=== PATIENT | female | born 2000 | race Caucasian/White ===

== ENCOUNTER 2020-03-06 19:20 | Emergency (ER) | payer BC, SELFPAY ==
[2020-03-06 19:30] VITALS: BP 133/94; PULSE 105; RESP 16; TEMP 37.1; O2SAT 97; BMI 35.2; BMI 35.3
--- NOTE | 2020-03-06 19:48 | HMH.EDUTC ---
[facility] [place] Disposition Clinical Impression: Low back pain with radiation Sciatica Qualifiers: Laterality: right Qualified Code(s): M54.31 - Sciatica, right side Disposition: Home, Self-Care Condition on Discharge: Good Instructions: Sciatica, DI for Sciatica, DI for Back Pain With Sciatica Additional Instructions: Go home and rest. It would be best if you rested tomorrow too. No heavy lifting. No twisting. Take the oral medications as directed. The muscle relaxer (robaxin) will make you drowsy, so don't drive or operate heavy machinery after taking it. Don't start the oral steroids (medrol dose pack) until tomorrow, since you had the shots in here today. Follow up with your regular doctor. GO TO THE ER FOR ANY WORSENING SYMPTOMS OR CONCERN, ESPECIALLY BOWEL OR BLADDER ISSUES, SADDLE AREA NUMBNESS, FEVER, ETC Prescriptions: Ibuprofen [Ibuprofen 600mg Tablet] 600 mg PO Q6HP PRN #30 tab PRN Reason: Mild Pain Transmission Status: Received by [facility] #[id number] methylPREDNISolone [Medrol] 4 mg PO DIRECTED 6 Days #21 tab.ds.pk Transmission Status: Received by [facility] #[id number] Referrals: PCP,No [Primary Care Provider] - Time of Disposition: 20:11 Medical Decision Making - Medical Records Medical records reviewed: No: I reviewed the patient's medical records. - Duane Inquiry Pt receiving controlled substance: No Vital Signs: 03/06/20 19:30 03/06/20 20:18 Temperature 98.7 F 98.7 F Temperature Source Oral Pulse Rate 105 H Pulse Rate [Right] 105 H Respiratory Rate 16 16 Blood Pressure 133/94 H Blood Pressure [Right Arm] 133/94 H Blood Pressure Mean [Right Arm] 107 Blood Pressure Source [Right Arm] Automatic Cuff Blood Pressure Position [Right Arm] Sitting 02 Sat by Pulse Oximetry 97 Oxygen Delivery Method Room Air Orders (Tests/Meds): ED MEDICATIONS Discontinued Medications Generic Name Dose Route Start Last Admin Trade Name Freq PRN Reason Stop Dose Admin Ketorolac Tromethamine 60 mg 03/06/20 19:58 03/06/20 20:15 Ketorolac 60mg/2ml Vial IM 03/06/20 19:59 60 mg ONCE ONE Administration Methylprednisolone Sodium Succinate 125 mg 03/06/20 19:58 03/06/20 20:15 Methylprednisolone Sod Succ 125mg Vial IM 03/06/20 19:59 125 mg ONCE ONE Administration [facility] [place] HPI - General Stated complaint: back pain radiating to leg Time Seen by Provider: 03/06/20 19:48 Mode of Arrival: Ambulatory Source of Information: Patient Limitations: No Limitations Description of Symptoms (Recalled from Triage Doc. by RN): PATIENT C/O PAIN IN LEFT LOWER BACK THAT RADIATES DOWN LEFT LEG. STATES PAIN BEGAN YESTERDAY AND WAS WORSE THIS MORNING. DENIES INJURY HEENT Symptoms (Recalled from RN notes): No Resp Symptoms (Recalled from RN notes): No Skin Symptoms (Recalled from RN notes): No MS Symptoms (Recalled from RN notes): Yes Functional Status (Recalled from RN notes): WNL - History of Present Illness Provider Complaint: She c/o low back pain that radiates down her right leg. She states that this pain began a couple days ago. She denies any recent injury, recent falls or mva. She denies any saddle area numbness or urinary or bowel complaints. - Related Data Previous Rx's Medication Instructions Recorded Ibuprofen [Ibuprofen 600mg 600 mg PO Q6HP PRN #30 tab 03/06/20 Tablet] methylPREDNISolone [Medrol] 4 mg PO DIRECTED 6 Days #21 03/06/20 tab.ds.pk Allergies Allergy/AdvReac Type Severity Reaction Status Date / Time No Known Allergies Allergy Unverified 02/11/17 15:33 - Worker's Comp Is this a Worker's Comp case?: No [facility] History - Hepatitis A Screen Drug use history?: No High risk sexual behaviors?: No History of sexually transmitted infection?: No Currently employed?: No Childcare worker?: No Do you have indoor plumbing?: Yes Do you have electricity?: Yes Attestation statement:: This patient has been screene
[2020-03-06 20:18] VITALS: BP 133/94; PULSE 105; RESP 16; TEMP 37.1; O2SAT 97
== END 2020-03-06 20:30 | disposition home or self-care (01) ==
PROVIDERS: Emergency Provider Nurse Practitioner Family
DX: M54.31 Sciatica, right side (principal)
CPT/HCPCS: 96372; 99202; G0463

== ENCOUNTER → 2020-11-30 19:40 | Outpatient (CLI) | payer BC, SELFPAY | PROVIDERS: Visit Provider Nurse Practitioner Family | DX: Z20.822 Contact with and (suspected) exposure to COVID-19 (principal) | CPT/HCPCS: C9803; U0003; U0005 ==

== ENCOUNTER 2021-02-25 17:07 | Emergency (ER) | payer BC, SELFPAY ==
[2021-02-25 19:20] VITALS: BP 145/95; PULSE 102; RESP 18; TEMP 37.3; O2SAT 97; BMI 36.1
[2021-02-25 19:38] LABS: UTC Influenza A Antigen Negative (Negative); UTC Influenza B Antigen Negative (Negative)
[2021-02-25 19:39] LABS: UTC Strep Screen (Rapid) Negative (Negative)
--- NOTE | 2021-02-25 19:46 | HMH.EDUTC ---
[facility] [place] Impression: Viral syndrome, Vertigo Disposition: Home, Self-Care Condition on Discharge: Good Instructions: DI for COVID-19 (Suspected or Confirmed ), Preventing the Spread of Coronavirus Discharge Instructions Additional Instructions: Drink plenty of fluids. Take tylenol or ibuprofen for pain or fever. Take the medications as directed. Follow up with your regular doctor. GO TO THE ER FOR ANY WORSENING SYMPTOMS Quarantine until you know the results of your covid-19 test. If it is positive, the health department should call you and give you further instructions about your length of Quarantine and other things. Notify your school or workplace of your results and follow their instructions regarding return to work/school. Prescriptions: Meclizine HCl [Antivert 25mg tablet] 25 mg PO Q6HP PRN #20 tab PRN Reason: Dizziness [id number] methylPREDNISolone [Medrol] 4 mg PO DIRECTED 6 Days #21 packet Transmission Status: [id number] Azithromycin [Z-Néstor 250mg Tab*] 250 mg PO UD DOSE PK #6 tab Transmission Status: [facility] Referrals: Provider,Referral, [Primary Care Provider] - Forms: Work/School Release Time of Disposition: 20:18 Medical Decision Making - Medical Records Medical records reviewed: No: I reviewed the patient's medical records. - Duane Inquiry Pt receiving controlled substance: No Vital Signs: 02/25/21 19:20 Temperature 99.1 F Temperature Source Oral Pulse Rate [Left] 102 H Respiratory Rate 18 Blood Pressure [Right Arm] 145/95 H Blood Pressure Mean [Right Arm] 111 02 Sat by Pulse Oximetry 97 - Lab Data Lab results reviewed: Yes: I reviewed the patient's lab results. Lab Results 02/25/21 19:37: Strep Scn [facility] Negative 02/25/21 19:37: Influenza Type A Ag Negative, Influenza Type B Ag Negative Orders (Tests/Meds): ORDERS Category Date Time Status Covid-19 Nasal PCR ([facility]) Routine Lab 02/25/21 19:17 Received Strep Screen Confirmation Routine Micro 02/25/21 19:37 [facility] - General Stated complaint: headache, nausea, soa, diarrhea Time Seen by Provider: 02/25/21 19:46 Mode of Arrival: Ambulatory Source of Information: Patient Limitations: No Limitations Description of Symptoms (Recalled from Triage Doc. by RN): pt c/o a GOMEZ, dizziness, nausea, diarrhea, stomach ache and soa. x3 days HEENT Symptoms (Recalled from RN notes): Yes Resp Symptoms (Recalled from RN notes): Yes Skin Symptoms (Recalled from RN notes): No MS Symptoms (Recalled from RN notes): No Functional Status (Recalled from RN notes): wnl - History of Present Illness Provider Complaint: She c/o bilateral ear pain, sore throat, intermitent dizziness, and a nonproductive cough for the past 2 days. She denies fever but she has been having chills at times. - Related Data Previous Rx's Medication Instructions Recorded azithromycin 250 mg tablet 250 mg PO QDAY 5 Days #6 tab 11/30/20 Azithromycin [Z-Néstor 250mg Tab*] 250 mg PO UD DOSE PK #6 tab 02/25/21 Meclizine HCl [Antivert 25mg 25 mg PO Q6HP PRN #20 tab 02/25/21 tablet] methylPREDNISolone [Medrol] 4 mg PO DIRECTED 6 Days #21 02/25/21 packet Allergies Allergy/AdvReac Type Severity Reaction Status Date / Time No Known Allergies Allergy Unverified 11/30/20 15:23 - Worker's Comp Is this a Worker's Comp case?: No [facility] History - Hepatitis A Screen Drug use history?: No High risk sexual behaviors?: No History of sexually transmitted infection?: No Currently employed?: No Childcare worker?: No Do you have indoor plumbing?: Yes Do you have electricity?: Yes Attestation statement:: This patient has been screened for Hepatitis A risk factors. I have reviewed the patient's past medical history: Yes Other Surgeries: Yes: No Previous Surgery - Social History Smoking Status: Never sm
[2021-02-25 20:27] VITALS: BP 145/95; PULSE 102; RESP 18; TEMP 37.3
== END 2021-02-25 20:29 | disposition home or self-care (01) ==
PROVIDERS: Emergency Provider Nurse Practitioner Family
DX: B34.9 Viral infection, unspecified (principal); R42 Dizziness and giddiness; Z20.822 Contact with and (suspected) exposure to COVID-19
CPT/HCPCS: 87804; 87880; 99203; C9803; G0463; U0003; U0005

== ENCOUNTER 2021-03-11 13:26 | Emergency (ER) | payer BC, SELFPAY ==
[2021-03-11 15:22] VITALS: BP 119/84; PULSE 91; RESP 20; TEMP 36.9; O2SAT 97; BMI 35.9
--- NOTE | 2021-03-11 15:26 | HMH.EDUTC ---
[facility] [place] Disposition Clinical Impression: Viral syndrome, Exposure to COVID-19 virus Disposition: Home, Self-Care Condition on Discharge: Good Instructions: DI for Viral Syndrome, DI for COVID-19 (Suspected or Confirmed ), Preventing the Spread of Coronavirus Discharge Instructions Additional Instructions: Drink plenty of fluids. Take tylenol or ibuprofen for pain or fever. Take the medications as directed. The zofran if for the nausea you are having. Follow up with your regular doctor. GO TO THE ER FOR ANY WORSENING SYMPTOMS Quarantine until you know the results of your covid-19 test. Notify your school or workplace of your results and follow their instructions regarding return to work/school. Prescriptions: Ondansetron [Zofran 4mg ODT] 4 mg PO Q8HP PRN #20 tab PRN Reason: Nausea Transmission Status: Received by [id number] Referrals: Provider,Referral, [Primary Care Provider] - Forms: Work/School Release Time of Disposition: 15:39 Medical Decision Making - Medical Records Medical records reviewed: No: I reviewed the patient's medical records. - Duane Inquiry Pt receiving controlled substance: No Vital Signs: 03/11/21 15:22 03/11/21 16:05 Temperature 98.4 F 98.4 F Temperature Source Oral Pulse Rate 91 H Pulse Rate [Left] 91 H Respiratory Rate 20 20 Blood Pressure 119/84 Blood Pressure [Right Arm] 119/84 Blood Pressure Mean [Right Arm] 95 02 Sat by Pulse Oximetry 97 [facility] [place] HPI - General Stated complaint: covid test Time Seen by Provider: 03/11/21 15:26 - History of Present Illness Provider Complaint: She states that she started to feel bad last night, but did not have any specific symptoms. Today, while she was at work at [employer], she began chilling, having a cough and having chest tightness when she breaths deep. She has not had a documented fever. - Related Data Previous Rx's Medication Instructions Recorded azithromycin 250 mg tablet 250 mg PO QDAY 5 Days #6 tab 11/30/20 Azithromycin [Z-Néstor 250mg Tab*] 250 mg PO UD DOSE PK #6 tab 02/25/21 Meclizine HCl [Antivert 25mg 25 mg PO Q6HP PRN #20 tab 02/25/21 tablet] methylPREDNISolone [Medrol] 4 mg PO DIRECTED 6 Days #21 02/25/21 packet Ondansetron [Zofran 4mg ODT] 4 mg PO Q8HP PRN #20 tab 03/11/21 Allergies Allergy/AdvReac Type Severity Reaction Status Date / Time No Known Allergies Allergy Unverified 11/30/20 15:[address] [facility] History - Hepatitis A Screen Attestation statement:: This patient has been screened for Hepatitis A risk factors. I have reviewed the patient's past medical history: Yes Other Surgeries: Yes: No Previous Surgery - Social History Smoking Status: Never smoker Alcohol Intake: never Occupational Status: other Family Hx:: Non-contributory ROS Obtained: Yes All systems reviewed & no additional complaints - Constitutional Constitutional: Reports as per HPI - Eyes Eyes: Denies eye discharge - ENT Ears, Nose, Mouth, and Throat: Reports as per HPI - Cardiovascular Cardiovascular: Denies chest pain - Respiratory Respiratory: Reports chest congestion, Reports cough, Denies dyspnea, Denies stridor, Denies wheezing Physical Exam - General General appearance: alert, in no apparent distress - Head Head exam: atraumatic, normocephalic, normal inspection - Eye Eye exam: Present: normal appearance, PERRL, EOMI - ENT ENT exam: Present: normal exam, normal oropharynx, mucous membranes moist, TM's normal bilaterally, normal external ear exam - Neck Neck exam: Present: normal inspection, full ROM, trachea midline. Absent: meningismus, lymphadenopathy - Chest Chest inspection: Present: normal inspection, symmetric chest wall rise. Absent: tenderness - Respiratory Respiratory exam: Present: normal lung sounds bilaterally. Absent: respiratory distress - Cardiovascular Cardiovascular exam: Present: regular rate, normal rhythm. Absent
[2021-03-11 16:05] VITALS: BP 119/84; PULSE 91; RESP 20; TEMP 36.9
== END 2021-03-11 16:06 | disposition home or self-care (01) ==
PROVIDERS: Emergency Provider Nurse Practitioner Family
DX: B34.9 Viral infection, unspecified (principal); Z20.822 Contact with and (suspected) exposure to COVID-19
CPT/HCPCS: 99202; C9803; G0463; U0003; U0005

== ENCOUNTER 2021-04-22 17:44 | Emergency (ER) | payer BC, SELFPAY ==
[2021-04-22 18:00] VITALS: BP 153/89; PULSE 100; RESP 19; TEMP 37.7; O2SAT 97; BMI 35.9
--- NOTE | 2021-04-22 18:30 | HMH.EDUTC ---
[facility] [place] Clinical Impression: Strep throat Disposition: Home, Self-Care Condition on Discharge: Good Instructions: DI for Strep Throat, Strep Throat Additional Instructions: Drink plenty of fluids. Take tylenol or ibuprofen for pain or fever. Take the medications as directed. Follow up with your regular doctor. GO TO THE ER FOR ANY WORSENING SYMPTOMS Throw your tooth brush away and get a new one. Prescriptions: Brompheniramine/Pseudoephed/Dm [Bromfed Dm Cough Syrup] 5 ml PO Q6HP PRN #240 ml PRN Reason: Cough Transmission Status: Pending to [facility] Ondansetron [Zofran 4mg ODT] 4 mg PO Q8HP PRN #20 tab PRN Reason: Nausea Transmission Status[facility] Amoxicillin/Potassium Clav [Augmentin 875-125 Tablet] 1 tab PO Q12H 10 Days #20 tab Transmission Status[facility] Referrals: Provider,Referral, [Primary Care Provider] - Time of Disposition: 19:05 Medical Decision Making - Medical Records Medical records reviewed: No: I reviewed the patient's medical records. - Duane Inquiry Pt receiving controlled substance: No Vital Signs: 04/22/21 18:00 Temperature 100 F H Temperature Source Oral Pulse Rate [Left] 100 H Respiratory Rate 19 Blood Pressure [Right Arm] 153/89 H Blood Pressure Mean [Right Arm] 110 02 Sat by Pulse Oximetry 97 - Lab Data Lab results reviewed: Yes: I reviewed the patient's lab results. [facility] [place]PI - General Stated complaint: cough SOB Time Seen by Provider: 04/22/21 18:30 Mode of Arrival: Ambulatory Source of Information: Patient Limitations: No Limitations Description of Symptoms (Recalled from Triage Doc. by RN): pt c/o congestion, a dry cough, and SOA x3 days. HEENT Symptoms (Recalled from RN notes): Yes Resp Symptoms (Recalled from RN notes): Yes Skin Symptoms (Recalled from RN notes): No MS Symptoms (Recalled from RN notes): No Functional Status (Recalled from RN notes): wnl - History of Present Illness Provider Complaint: She c/o sore throat, sinus congestion, a dry cough, fever, chills for the past 1 day. - Related Data Previous Rx's Medication Instructions Recorded azithromycin 250 mg tablet 250 mg PO QDAY 5 Days #6 tab 11/30/20 Azithromycin [Z-Néstor 250mg Tab*] 250 mg PO UD DOSE PK #6 tab 02/25/21 Meclizine HCl [Antivert 25mg 25 mg PO Q6HP PRN #20 tab 02/25/21 tablet] methylPREDNISolone [Medrol] 4 mg PO DIRECTED 6 Days #21 02/25/21 packet Ondansetron [Zofran 4mg ODT] 4 mg PO Q8HP PRN #20 tab 03/11/21 Amoxicillin/Potassium Clav 1 tab PO Q12H 10 Days #20 tab 04/22/21 [Augmentin 875-125 Tablet] Brompheniramine/Pseudoephed/Dm 5 ml PO Q6HP PRN #240 ml 04/22/21 [Bromfed Dm Cough Syrup] Ondansetron [Zofran 4mg ODT] 4 mg PO Q8HP PRN #20 tab 04/22/21 Allergies Allergy/AdvReac Type Severity Reaction Status Date / Time No Known Allergies Allergy Unverified 11/30/20 15:23 - Worker's Comp Is this a Worker's Comp case?: No [facility] History - Hepatitis A Screen Drug use history?: No High risk sexual behaviors?: No History of sexually transmitted infection?: No Currently employed?: No Childcare worker?: No Do you have indoor plumbing?: Yes Do you have electricity?: Yes Attestation statement:: This patient has been screened for Hepatitis A risk factors. I have reviewed the patient's past medical history: Yes Other Surgeries: Yes: No Previous Surgery - Social History Smoking Status: Never smoker Alcohol Intake: never Occupational Status: other Family Hx:: Non-contributory ROS Obtained: Yes All systems reviewed & no additional complaints - Constitutional Constitutional: Reports as per HPI - Eyes Eyes: Denies eye discharge - ENT Ears, Nose, Mouth, and Throat: Reports as per HPI - Cardiovascular Cardiovascular: Denies chest pain - Respiratory Respiratory: Denies change in phlegm color, Denies chest congestion, Reports cough
[2021-04-22 19:11] LABS: UTC Strep Screen (Rapid) Positive (Negative)
[2021-04-22 19:31] VITALS: BP 153/89; PULSE 100; RESP 19; TEMP 37.7
== END 2021-04-22 19:40 | disposition home or self-care (01) ==
PROVIDERS: Emergency Provider Nurse Practitioner Family
DX: J02.0 Streptococcal pharyngitis (principal)
CPT/HCPCS: 87880; 99203; C9803; G0463; U0003; U0005